=== PATIENT | female | born 1945 | race Caucasian/White ===

== ENCOUNTER 2017-08-09 14:07 | Outpatient (CLI) | payer MEDICARE, BC ==
--- NOTE | 2017-08-09 17:18 | RAD ---
EXAM: CHEST TWO VIEWS HISTORY: Dyspnea. COMPARISON: 11/19/2014 FINDINGS: Sternotomy wires are noted. Heart size is within normal limits. Atherosclerosis of the aorta is steven ntified. Pulmonary vessels and hilum are normal. Costophrenic angles are clear. No mass. No conso lidation. Lungs are hyperinflated. No pneumothorax or osseous abnormalities. IMPRESSION: 1. Chronic change of lung parenchyma. 2. Hyperinflation. 3. Atherosclerosis. POS: MAURICIO
== END 2017-08-09 14:08 | disposition home or self-care (01) ==
LOC: RAD 14:07
PROVIDERS: ATTEND Internal Medicine Critical Care Medicine
DX: R06.00 Dyspnea, unspecified (principal); I70.90 Unspecified atherosclerosis
CPT/HCPCS: 71020

== ENCOUNTER 2017-09-29 13:34 | Outpatient (CLI) | payer MEDICARE, BC | END 2017-09-29 13:35 | disposition home or self-care (01) | LOC: CP 13:34 | PROVIDERS: ATTEND Internal Medicine Critical Care Medicine | DX: J44.9 Chronic obstructive pulmonary disease, unspecified (principal) | CPT/HCPCS: 94060; 94727; 94729 ==

== ENCOUNTER 2019-01-03 05:44 | Day surgery (SDC) | payer MEDICARE, BC ==
[2018-12-27 14:29] VITALS: BMI 39.4
--- NOTE | 2019-01-02 22:21 | HP ---
HISTORY OF PRESENT ILLNESS: Ms. Perea is a 73-year-old woman, presenting for chronic history of severe lumbar spinal pain with neurogenic claudication symptoms. She has new MRIs performed in the [facility] [place] revealing severe spinal stenosis from L4 to S1 and has attempted injections, medications, and physical therapy and continued to fail these conservative management. She has reached a point of exasperation where she hopes to move forward with surgery if possible. PAST MEDICAL HISTORY: Significant for COPD, asthma, IBS. PAST SURGICAL HISTORY: Hysterectomy, cholecystectomy, double cardiac bypass. CURRENT MEDICATIONS: 1. Sandra. 2. Levothyroxine. 3. Crestor. 4. Ecotrin. 5. Metoprolol. 6. Clopidogrel. 7. Benicar. 8. Lexapro. 9. Metformin. 10. Trazodone. 11. Montelukast. 12. Tramadol. 13. Lyrica. 14. Tylenol OTC. 15. Tizanidine. 16. Alprazolam. 17. ProAir. 18. Advair Diskus. PHYSICAL EXAMINATION: GENERAL: The patient is alert and oriented x3. MUSCULOSKELETAL: Gait is significantly antalgic and stooped. ASSESSMENT: Lumbar spinal stenosis with neurogenic claudication. PLAN: Dr. Byrd met with the patient, reviewed imaging, and advocated for L4-S1 decompression. He explained to the patient the risks, benefits, and alternatives to the procedure. The patient expressed understanding and elected to move forward with the surgery as discussed. I do believe the patient is mentally competent and capable of making medical decisions for herself. We will move forward with surgery as planned. Job ID: [id number]
[2019-01-03] MEDS ORDERED: Bupivacaine HCl 0.5%/Epinephrine 1:200,000/PF 30 ml Vial ONE (06:19)
[2019-01-03] MEDS ORDERED: Thrombin 5000 UNITS/5 ML VIAL ONE (06:19)
[2019-01-03] MEDS ORDERED: Midazolam HCl 2 mg/2 ml Vial ONE (06:25)
[2019-01-03] MEDS ORDERED: Fentanyl 100 MCG/2 ML VIAL ONE ×2 (06:26→08:46)
[2019-01-03] MEDS ORDERED: Morphine 4 MG/ML VIAL ONE (09:05)
[2019-01-03] MEDS ORDERED: Morphine 2 MG/ML SYRINGE ONE ×2 (09:19→09:38)
--- NOTE | 2019-01-03 10:39 | OP ---
DATE OF PROCEDURE: 01/03/2019 DEVELOPMENTAL THERAPIST: Nagi Pope PA-C INDICATION: Pain. DIAGNOSIS: Lumbar stenosis with underlying radiculopathy. PROCEDURE PERFORMED: L4-L5 and L5-S1 decompression. ANESTHESIA: General. DESCRIPTION OF PROCEDURE: The patient was brought into the operating room and placed under general anesthesia. She was flipped from the supine to prone position on the operating room table. A linear incision was planned spanning L4 to S1. After prepping and draping and after an appropriate preoperative pause, the incision was created. The soft tissues were swept away from midline. A self-retaining retractor was placed in the wound for optimal exposure. After confirming the appropriate level with C-arm fluoroscopy, the spinous process of L5 was removed as was the inferior aspect of L4. High-speed cutting drill bit as well as 2, 3, and 4 mm Kerrisons were then used to perform a laminectomy, extended from L4-L5 to L5-S1. After decompressing these segment, the wound was irrigated. Hemostasis was maintained throughout. The wound was then closed in anatomic layers and a pressure dressing was applied. There were no known procedural complications. Job ID: [id number]
[2019-01-03] MEDS ORDERED: Acetaminophen/Codeine 30-300mg Tablet ONE (11:55)
[2019-01-03] MEDS ORDERED: Lidocaine 1% PF 5 ML VIAL ONE (16:01)
[2019-01-03] MEDS ORDERED: ePHEDrine 50 MG/ML VIAL ONE (16:01)
[2019-01-03] MEDS ORDERED: PROPOFOL 200 MG/20 ML VIAL ONE (16:01)
[2019-01-03] MEDS ORDERED: PHENYLEPHRINE-NS 100 MCG/ML 10 ML SYRINGE ONE (16:01)
[2019-01-03] MEDS ORDERED: Rocuronium Bromide 10 MG/ML (10ML VIAL) ONE (16:01)
[2019-01-03] MEDS ORDERED: Ondansetron PF 4 MG/2 ML Vial ONE (16:01)
== END 2019-01-03 13:40 | disposition home or self-care (01) ==
LOC: SDC 05:44
PROVIDERS: ATTEND Neurological Surgery
PROC: 01NB0ZZ Release Lumbar Nerve, Open Approach (ICD-10-PCS; principal; 2019-01-03)
DX: M48.062 Spinal stenosis, lumbar region with neurogenic claudication (principal); M54.16 Radiculopathy, lumbar region; J44.9 Chronic obstructive pulmonary disease, unspecified; K58.9 Irritable bowel syndrome, unspecified; I25.10 Atherosclerotic heart disease of native coronary artery without angina pectoris; E78.2 Mixed hyperlipidemia; K21.9 Gastro-esophageal reflux disease without esophagitis; K22.70 Barrett's esophagus without dysplasia; E66.01 Morbid (severe) obesity due to excess calories; Z68.39 Body mass index [BMI] 39.0-39.9, adult; Z79.02 Long term (current) use of antithrombotics/antiplatelets; Z79.82 Long term (current) use of aspirin; Z79.84 Long term (current) use of oral hypoglycemic drugs; Z79.899 Other long term (current) drug therapy; Z88.8 Allergy status to other drugs, medicaments and biological substances; Z95.1 Presence of aortocoronary bypass graft
CPT/HCPCS: 76000; J0670; J0690; J2001; J2250; J2270; J2405; J2704; J3010; J3490

== ENCOUNTER 2022-02-03 20:54 | Emergency (ER) | payer MEDICARE, BC ==
[2022-02-03] MEDS ORDERED: Ondansetron PF 4 MG/2 ML Vial ONE (21:37)
[2022-02-03] MEDS ORDERED: diphenhydrAMINE 25 MG CAP ONE (21:50)
[2022-02-03 22:01] LABS: #Basophils 0.1 thou/uL (0.0-0.2); #Eosinphils 0.1 thou/uL (0.0-0.7); #Lymphocytes 1.9 thou/uL (1.20-3.40); #Monocytes 0.9 thou/uL (0.11-0.59); #Neutrophils 5.5 thou/uL (1.40-6.50); %Basophils 0.6 % (0.0-1.0); %Eosinophils 0.6 % (0.0-10.0); %Lymphocytes 22.6 % (21.0-51.0); %Monocytes 10.8 % (0.0-10.0); %Neutrophils 65.4 % (42.0-75.0); Hemoglobin 11.9 g/dL (12.0-16.0); Mean Corpuscular HGB CONC 31.4 g/dL (32.0-36.0); Mean Corpuscular Hemoglobin 27.7 pg (27.0-31.0); Mean Corpuscular Volume 88.3 fL (78.0-98.0); Mean Platelet Volume 7.4 fL (7.4-10.4); Platelet Count 262 thou/uL (130-400); Red Blood Cell (RBC) Count 4.29 mill/uL (4.20-5.40); White Blood Cell (WBC) Count 8.4 thou/uL (4.8-10.8)
[2022-02-03 22:21] LABS: ALT (SGPT) 14 U/L (8-55); AST (SGOT) 17 U/L (5-34); Albumin 4.5 g/dL (3.4-4.8); Alkaline Phosphatase 64 U/L (40-110); Anion Gap 13 mmol/L (10-20); BUN (Urea Nitrogen) 10 mg/dL (9.8-20.1); Bilirubin, Total 0.4 mg/dL (0.2-1.2); Calc. Creatinine Clearance 0 mL/min (70-130); Calcium 9.5 mg/dL (7.8-10.44); Carbon Dioxide 27 mmol/L (23-31); Chloride 103 mmol/L (98-107); Globulin 2.5 g/dL (2.4-3.5); Glucose 184 mg/dL (83-110); Sodium 140 mmol/L (136-145)
[2022-02-03] MEDS ORDERED: Ondansetron ODT 4 MG TAB ONE (22:36)
[2022-02-03] MEDS ORDERED: Potassium Chloride 20 MEQ TAB ONE (22:36)
== END 2022-02-03 22:49 | disposition home or self-care (01) ==
LOC: ERS 20:54
DX: R00.2 Palpitations (principal); R68.83 Chills (without fever); R11.0 Nausea; T50.995A Adverse effect of other drugs, medicaments and biological substances, initial encounter; F41.9 Anxiety disorder, unspecified; I10 Essential (primary) hypertension; E78.5 Hyperlipidemia, unspecified; I12.9 Hypertensive chronic kidney disease with stage 1 through stage 4 chronic kidney disease, or unspecified chronic kidney disease; E11.22 Type 2 diabetes mellitus with diabetic chronic kidney disease; N18.9 Chronic kidney disease, unspecified; J44.9 Chronic obstructive pulmonary disease, unspecified; K21.9 Gastro-esophageal reflux disease without esophagitis
CPT/HCPCS: 36415; 80053; 84484; 85025; 93005; J2405; Q0162

== ENCOUNTER 2022-06-01 19:00 | Outpatient (CLI) | payer MEDICARE, BC | END 2022-06-01 19:01 | disposition home or self-care (01) | LOC: SLEEPLAB 19:00 | PROVIDERS: ATTEND Internal Medicine Critical Care Medicine | DX: G47.33 Obstructive sleep apnea (adult) (pediatric) (principal); R06.83 Snoring; G47.10 Hypersomnia, unspecified; I25.10 Atherosclerotic heart disease of native coronary artery without angina pectoris; F41.9 Anxiety disorder, unspecified; F32.9 Major depressive disorder, single episode, unspecified; E11.9 Type 2 diabetes mellitus without complications; K21.9 Gastro-esophageal reflux disease without esophagitis; G47.00 Insomnia, unspecified; I10 Essential (primary) hypertension | CPT/HCPCS: 95810 ==

== ENCOUNTER 2024-02-05 04:39 | Observation (INO) | payer BC, MEDICARE ==
[2024-02-05 05:43] LABS: #Basophils 0.07 10x3/uL (0.0-0.2); %Basophils 0.9 % (0.0-1.0); %Eosinophils 2.9 % (0.0-10.0); %Lymphocytes 35.3 % (21.0-51.0); %Monocytes 8.5 % (0.0-10.0); %Neutrophils 51.9 % (42.0-75.0); Hematocrit 38.9 % (36.0-47.0); Hemoglobin 12.3 g/dL (12.0-16.0); Mean Corpuscular HGB CONC 31.6 g/dL (32.0-36.0); Mean Corpuscular Hemoglobin 27.2 pg (27.0-31.0); Mean Corpuscular Volume 86.1 fL (78.0-98.0); Mean Platelet Volume 9.7 fL (7.4-10.4); Platelet Count 238 10x3/uL (130-400); RBC Distribution Width 15.9 % (11.5-14.5); Red Blood Cell (RBC) Count 4.52 mill/uL (4.20-5.40)
[2024-02-05 05:56] LABS: ALT (SGPT) 14 U/L (8-55); AST (SGOT) 16 U/L (5-34); Albumin 4.3 g/dL (3.4-4.8); Alkaline Phosphatase 67 U/L (40-110); Anion Gap 18 mmol/L (10-20); BUN (Urea Nitrogen) 13 mg/dL (9.8-20.1); Bilirubin, Total 0.6 mg/dL (0.2-1.2); Calc. Creatinine Clearance 0 mL/min (70-130); Calcium 9.9 mg/dL (7.8-10.44); Carbon Dioxide 20 mmol/L (23-31); Chloride 106 mmol/L (98-107); Estimated GFR 49; Globulin 2.7 g/dL (2.4-3.5); Glucose 149 mg/dL (83-110); Potassium 3.5 mmol/L (3.5-5.1); Sodium 140 mmol/L (136-145)
[2024-02-05 05:57] LABS: Troponin I Less than 0.010 ng/mL (< 0.028)
[2024-02-05] MEDS ORDERED: Aspirin Chewable 81 MG TAB ONE (06:34)
[2024-02-05] MEDS ORDERED: Enoxaparin 100 MG (1 mL) SYRINGE ONE (06:34)
[2024-02-05] MEDS ORDERED: hydrALAZINE 20 MG/ML VIAL ONE (06:34)
[2024-02-05 09:17] LABS: Troponin I Less than 0.010 ng/mL (< 0.028)
[2024-02-05 10:34] VITALS: BMI 34.3
[2024-02-05] MEDS ORDERED: Ondansetron ODT 4 MG TAB PO PRN (11:03)
[2024-02-05] MEDS ORDERED: Ondansetron PF 4 MG/2 ML Vial IVP PRN (11:03)
[2024-02-05] MEDS ORDERED: Acetaminophen 500 MG TAB PO PRN (11:03)
[2024-02-05] MEDS ORDERED: traMADol HCl 50 MG TAB PO PRN (11:03)
[2024-02-05] MEDS ORDERED: Dextrose 50% Abboject 50 ML SYRINGE SLOW IVP PRN (11:03)
[2024-02-05] MEDS ORDERED: Dextrose 5% in Water 1,000 ML IV PRN (11:03)
[2024-02-05] MEDS ORDERED: Nitroglycerin 0.4 MG TAB (25 Tab Bottle) SL PRN (11:03)
[2024-02-05] MEDS ORDERED: Glucagon 1 MG/ML KIT IM PRN (11:03)
[2024-02-05] MEDS ORDERED: hydrALAZINE 20 MG/ML VIAL SLOW IVP PRN (11:03)
[2024-02-05] MEDS ORDERED: HumaLOG 300 UNITS/3 ML VIAL SC PRN ×2 (11:03)
[2024-02-05] MEDS ORDERED: Albuterol 200 PUFF INH INH PRN (11:10)
[2024-02-05] MEDS ORDERED: Mometasone 200 MCG/Formoterol 5 MCG 120 PUFF INHALER INH PRN (11:28)
[2024-02-05 12:03] LABS: Lactic Acid 1.7 mmol/L (0.5-2.2)
[2024-02-05 12:06] LABS: Troponin I Less than 0.010 ng/mL (< 0.028)
[2024-02-05] MEDS: Pantoprazole DR 40 MG TAB PO SCH (12:40)
[2024-02-05] MEDS: traZODone HCl 150 MG TAB PO SCH (20:06)
[2024-02-05] MEDS: Montelukast Sodium 10 mg Tablet PO SCH (20:06)
[2024-02-05] MEDS: ALPRAZolam 0.5 MG TAB PO PRN (20:15)
[2024-02-05] MEDS: Famotidine 20 MG TAB PO SCH (23:40)
[2024-02-06] MEDS: Levothyroxine 150 MCG TAB PO SCH (05:08)
[2024-02-06 06:02] LABS: #Basophils 0.06 10x3/uL (0.0-0.2); %Basophils 0.8 % (0.0-1.0); %Eosinophils 1.5 % (0.0-10.0); %Neutrophils 54.1 % (42.0-75.0); Hematocrit 35.4 % (36.0-47.0); Hemoglobin 11.2 g/dL (12.0-16.0); Mean Corpuscular HGB CONC 31.6 g/dL (32.0-36.0); Mean Corpuscular Hemoglobin 27.1 pg (27.0-31.0); Mean Corpuscular Volume 85.5 fL (78.0-98.0); Mean Platelet Volume 10.1 fL (7.4-10.4); Platelet Count 230 10x3/uL (130-400); Red Blood Cell (RBC) Count 4.14 mill/uL (4.20-5.40)
[2024-02-06 06:25] LABS: Anion Gap 16 mmol/L (10-20); BUN (Urea Nitrogen) 13 mg/dL (9.8-20.1); Calc. Creatinine Clearance 74 mL/min (70-130); Calcium 9.2 mg/dL (7.8-10.44); Carbon Dioxide 23 mmol/L (23-31); Cardiac Risk 2.7 (Less than 4.5); Chloride 106 mmol/L (98-107); Cholesterol 123 mg/dl (< 200 Desired); Estimated GFR 61; Glucose 121 mg/dL (83-110); HDL Cholesterol 45 mg/dL (>60 Neg Risk); LDL Cholesterol, Calculated 29 mg/dL; Magnesium 2.2 mg/dL (1.6-2.6); Potassium 3.2 mmol/L (3.5-5.1); Sodium 142 mmol/L (136-145); Triglycerides 247 mg/dL (Less than 150)
[2024-02-06] MEDS: Cholecalciferol 1,000 UNITS (25 MCG) TAB PO SCH (08:12)
[2024-02-06] MEDS: Escitalopram Oxalate 20 mg Tablet PO SCH (08:13)
[2024-02-06] MEDS: Loratadine 10 MG TAB PO SCH (08:13)
[2024-02-06] MEDS: metFORMIN 850 MG TAB PO SCH (08:13)
[2024-02-06] MEDS: Aspirin 81 mg Enteric Coated Tablet PO SCH (08:13)
[2024-02-06] MEDS: Losartan 25 MG TAB PO SCH (08:13)
[2024-02-06] MEDS: Rosuvastatin 20 MG TAB PO SCH (08:13)
[2024-02-06] MEDS: Clopidogrel Bisulfate 75 MG TAB PO SCH (08:13)
[2024-02-06] MEDS: Pantoprazole DR 40 MG TAB PO SCH (08:14)
[2024-02-06] MEDS: Furosemide 20 MG TAB PO SCH (08:14)
[2024-02-06 15:33] VITALS: BP 145/69; TEMP 98.3
== END 2024-02-06 18:00 | disposition home or self-care (01) ==
LOC: ERS 04:39 → ERHOLD 06:35 → 2NO 10:06
PROVIDERS: ADMIT Student in an Organized Health Care Education/Training Program; ATTEND Internal Medicine
PROC: B246ZZZ Ultrasonography of Right and Left Heart (ICD-10-PCS; principal; 2024-02-05)
DX: R07.9 Chest pain, unspecified (principal); R06.02 Shortness of breath; R00.2 Palpitations; J44.9 Chronic obstructive pulmonary disease, unspecified; I25.10 Atherosclerotic heart disease of native coronary artery without angina pectoris; E78.5 Hyperlipidemia, unspecified; I10 Essential (primary) hypertension; K21.9 Gastro-esophageal reflux disease without esophagitis; E11.42 Type 2 diabetes mellitus with diabetic polyneuropathy; F41.9 Anxiety disorder, unspecified; Z79.82 Long term (current) use of aspirin; Z79.899 Other long term (current) drug therapy; Z95.1 Presence of aortocoronary bypass graft; Z90.710 Acquired absence of both cervix and uterus; Z90.49 Acquired absence of other specified parts of digestive tract; Z98.890 Other specified postprocedural states; Z79.890 Hormone replacement therapy; Z79.84 Long term (current) use of oral hypoglycemic drugs; Z88.8 Allergy status to other drugs, medicaments and biological substances; Z88.4 Allergy status to anesthetic agent; Z88.2 Allergy status to sulfonamides
CPT/HCPCS: 71045; 80048; 80053; 80061; 82962; 83605; 83735; 83880; 84443; 84484 ×2; 85025 ×2; 93005; 93306; 94760 ×2; 96372; 96374; 99285; J0360; 36415; 36416; G0378; J1650